=== PATIENT | female | born 1995 | race African-American/Black ===

== ENCOUNTER 2020-02-11 16:20 | Emergency (ER) | payer SELFPAY ==
[2020-02-11] MEDS ORDERED: NORMAL SALINE 1000 ML 1,000 ML IV ONE (16:32)
[2020-02-11] MEDS ORDERED: PROMETHAZINE HCL 25 MG SUPP.RECT PR ONE (16:33)
[2020-02-11 17:18] LABS: ABSOLUTE BASOPHILS # (AUTO) 0.1 10^3/uL (0.0-0.2); ABSOLUTE EOSINOPHILS # (AUTO) 0.1 10^3/uL (0.0-0.6); ABSOLUTE LYMPHOCYTES (AUTO) 2.7 10^3/uL (0.5-4.7); ABSOLUTE MONOCYTES (AUTO) 1.1 10^3/uL (0.1-1.4); ABSOLUTE NEUT (AUTO) 4.5 10^3/uL (1.7-8.2); BASOPHILS % (AUTO) 0.7 % (0-2); EOSINOPHILS % (AUTO) 0.9 % (0-6); HEMATOCRIT 41.7 % (36.0-47.0); HEMOGLOBIN 13.6 g/dL (12.0-15.5); LYMPHOCYTES % (AUTO) 32.3 % (13-45); MEAN CORPUSCULAR HEMOGLOBIN 23.4 pg (27.0-33.4); MEAN CORPUSCULAR HGB CONC 32.6 g/dL (32.0-36.0); MEAN CORPUSCULAR VOLUME 72 fl (80-97); MONOCYTES % (AUTO) 12.9 % (3-13); PLATELET COUNT 285 10^3/uL (150-450); RED BLOOD COUNT 5.79 10^6/uL (3.72-5.28); RED CELL DISTRIBUTION WIDTH 16.1 % (11.5-14.0); SEGMENTED NEUTROPHILS % (AUTO) 53.2 % (42-78); TOTAL CELLS COUNTED % (AUTO) 100 %; WHITE BLOOD COUNT 8.4 10^3/uL (4.0-10.5)
[2020-02-11 17:32] LABS: APPEARANCE,URINE CLOUDY; BILIRUBIN,URINE NEGATIVE (NEGATIVE); COLOR,URINE AMBER; GLUCOSE, URINE NEGATIVE (NEGATIVE); KETONES,URINE 80 mg/dL (NEGATIVE); LEUKOCYTE ESTERASE,URINE LARGE (NEGATIVE); NITRITE,URINE NEGATIVE (NEGATIVE); PROTEIN,URINE 100 mg/dL (NEGATIVE); URINE SPECIFIC GRAVITY 1.024
[2020-02-11 17:41] LABS: ALBUMIN 4.5 g/dL (3.5-5.0); ALKALINE PHOSPHATASE 128 U/L (38-126); ANION GAP 12 (5-19); ASPARTATE AMINO TRANSFERASE 46 U/L (14-36); BILIRUBIN,DIRECT 0.3 mg/dL (0.0-0.4); BILIRUBIN,TOTAL 0.6 mg/dL (0.2-1.3); BLOOD UREA NITROGEN 6 mg/dL (7-20); CALCIUM 9.9 mg/dL (8.4-10.2); CARBON DIOXIDE 26 mmol/L (22-30); CHLORIDE 99 mmol/L (98-107); GLUCOSE 84 mg/dL (75-110); POTASSIUM 4.1 mmol/L (3.6-5.0); TOTAL PROTEIN 8.4 g/dL (6.3-8.2)
--- NOTE | 2020-02-11 17:44 | RADIOLOGY REPORT (SQ) ---
EXAM DESCRIPTION: U/S [id number] TRNABD 1GES W/ODOP IMAGES COMPLETED DATE/TIME: 02/11/2020 5:27 pm REASON FOR STUDY: Pelvic pain nausea and vomiting g1 11w 6 d COMPARISON: None. TECHNIQUE: Transabdominal static and realtime grayscale images acquired of the pelvis. Additional se lected spectral and color Doppler images recorded. All images stored on PACs. bHCG: Not available. CLINICAL DATES: 11 weeks 6 day LIMITATIONS: None. FINDINGS: FETUS: Single Living intrauterine . ULTRASOUND EGA: 12 weeks 0 days ULTRASOUND KANNAN: 08/25/2020 EFW: Not applicable less than 20 weeks. CRL: 5.3 cm FHR: 165 beats per minute. SURVEY: No visualized anomalies. AMNIOTIC FLUID: Adequate amount. PLACENTA: Not yet developed due to early gestation. SUBCHORIONIC BLEED: Yes. SIZE OF BLEED: 1.7 x 1.7 x 0.9 cm. UTERUS: No masses. No anomalies. CERVICAL LENGTH: 2.8 cm. Closed. RIGHT ADNEXA: Normal ovary with normal vascular flow. No adnexal free fluid. No adnexal masses. LEFT ADNEXA: Normal ovary with normal vascular flow. No adnexal free fluid. No adnexal masses. FREE FLUID: None. OTHER: No other significant finding. IMPRESSION: LIVING INTRAUTERINE . EGA 12 weeks 0 days. Small subchronic hemorrhage. Trimester of : First trimester - 0 to 13 weeks. TECHNICAL DOCUMENTATION: JOB ID: [id number] 2010 [employer]- All Rights Reserved rev Reading location - IP/workstation name: [email or web address]
[2020-02-11] MEDS ORDERED: CEFTRIAXONE INJ 1000 MG VIAL IV ONE (19:37)
--- NOTE | 2020-02-11 19:41 | ER Document Report ---
ED General - General Chief Complaint: Nausea/Vomiting Stated Complaint: ABDOMINAL PAIN,VOMITING/11 WKS PREG Time Seen by Provider: 02/11/20 16:25 Notes: Patient is a 24-year-old -French female who is G1, P0 at 11 weeks 6 days gestation per last menstrual cycle who presents to the emergency department with a chief complaint of abdominal pain, nausea and vomiting. Patient states that she has had ongoing nausea and vomiting for about a month. Intermittent in nature. Worse with oral intake. States that she has had some vague inte rmittent transient abdominal discomfort since the onset of . She states most recently it is in the upper abdomen. States she has been unable to keep any food or drinks down given the ongoing nausea and vomiting through . She called her [employer] today and they recommended she come here for evaluation. Patient was previously on doxylamine and pyridoxine for nausea and vomiting. States it was working at first but then stopped. She also reports her urine is been darker in color recently. She denies any vaginal bleeding or discharge. No fevers. - Related Data Allergies/Adverse Reactions: amoxicillin Allergy (Intermediate, Verified 02/11/20 16:33) Hives Home Medications: denies Past Medical History - Social History Smoking Status: Never Smoker Chew tobacco use (# tins/day): No Frequency of alcohol use: None Drug Abuse: None Family History: Reviewed & Not Pertinent Patient has homicidal ideation: No Pulmonary Medical History: Reports: Hx Asthma GI Medical History: Reports: Hx Gastroesophageal Reflux Disease Review of Systems - Review of Systems Constitutional: denies: Fever EENT: denies: Throat pain Cardiovascular: denies: Chest pain Respiratory: denies: Short of breath Gastrointestinal: Abdominal pain Genitourinary: denies: Pain Female Genitourinary: . denies: Vaginal discharge Musculoskeletal: denies: Back pain Skin: denies: Lesions Hematologic/Lymphatic: denies: Easy bleeding Neurological/Psychological: denies: Headaches Physical Exam - Vital signs Vitals: Temp Pulse Resp BP Pulse Ox 97.7 F 98 16 137/78 H 98 02/11/20 16:27 02/11/20 16:27 02/11/20 16:27 02/11/20 16:27 02/11/20 16:27 - General General appearance: Appears well, Alert In distress: None - Respiratory Respiratory status: No respiratory distress Chest status: Nontender Breath sounds: Normal Chest palpation: Normal - Cardiovascular Rhythm: Regular Heart sounds: Normal auscultation - Abdominal Inspection: Normal Distension: No distension Bowel sounds: Normal Tenderness: Tender - Slight tenderness to palpation in the epigastrium Organomegaly: No organomegaly - Extremities General upper extremity: Normal inspection. No: Tender, Edema General lower extremity: Normal inspection. No: Tender, Edema - Neurological Neuro grossly intact: Yes Cognition: Normal Orientation: AAOx4 - Psychological Associated symptoms: Normal affect, Normal mood - Skin Skin Temperature: Warm Skin Moisture: Dry Skin Color: Normal Course - Re-evaluation Re-evalutation: 02/11/20 21:29 Patient's laboratory studies showing some increased liver enzymes likely secondary to the hyperemesis at hand. No other evidence of help syndrome. Her urinalysis is consistent with a UTI. She was hydrated with a liter normal saline here. Given Phenergan for nausea and vomiting and started on Rocephin IV for the UTI. She will be sent home on Macrobid for the UTI and given Phenergan suppositories. She has an appointment with her OB doctor on Sunday and will follow-up as scheduled and discussed. Ultrasound showing a live IUP at approximately 12 weeks 0 days with a small subchorionic hemorrhage. Copy of the report was given to the patient to take to her OB doctor. I advised they return here or any ER immediately with any new, persistent or worsening symptoms. She verbalized understood and agreed. Patient is had no episodes of vomiting here, is resting comfortably in the room. She is stable and appropriate for discharge and outpatient follow-up. 02/11/20 21:31 - Vital Signs Vital signs: Temp Pulse Resp BP Pulse Ox 97.7 F 98 16 137/78 H 98 02/11/20 16:27 02/11/20 16:27 02/11/20 16:27 02/11/20 16:27 02/11/20 16:27 - Laboratory Result Diagrams: 02/11/20 17:00 02/11/20 17:00 Laboratory results interpreted by me: 02/11/20 02/11/20 02/11/20 17:00 17:00 17:00 RBC 5.79 H MCV 72 L MCH 23.4 L RDW 16.1 H Sodium 136.9 L BUN 6 L Creatinine 0.50 L AST 46 H ALT 63 H Alkaline Phosphatase 128 H Total Protein 8.4 H Beta HCG, Quant 456525.00 H Urine Protein 100 H Urine Ketones 80 H Urine Urobilinogen 4.0 H Ur Leukocyte Esterase LARGE H Discharge - Discharge Clinical Impression: Nausea and vomiting during , Elevated liver enzymes, 12 weeks gest ation of UTI (urinary tract infection) Qualifiers: Urinary tract infection type: site unspecified Hematuria presence: without hematuria Qualified Code(s): N39.0 - Urinary tract infection, site not specified Condition: Stable Disposition: HOME, SELF-CARE Instructions: Antinausea Medication ([facility]), Nitrofurantoin ([facility]), ([facility]) Additional Instructions: Please follow-up with your OB doctor this week as scheduled. Please return here or any ER immediately with any new, persistent or worsening symptoms. Prescriptions: Nitrofurantoin Monohyd/M-Cryst [Macrobid 100 mg Capsule] 100 mg PO BID #20 cap Promethazine HCl [Phenergan 25 mg Supp.rect] 1 supp WV Q6H #12 supp.rect
[2020-02-11] MEDS ORDERED: CEFTRIAXONE 1 GM/D5W RTU 1 GM/50 ML RTUPB IV ONE (20:51)
[2020-02-11] MEDS ORDERED: PROMETHAZINE HCL INJ 25 MG/1 ML VIAL ONE (20:56)
[2020-02-11] MEDS ORDERED: PROMETHAZINE HCL INJ 25 MG/1 ML VIAL IV ONE (20:56)
[2020-02-11 22:03] VITALS: BP 128/68
== END 2020-02-11 22:01 | disposition home or self-care (01) ==
LOC: ER 16:20
DX: O21.9 Vomiting of pregnancy, unspecified (principal); O23.41 Unspecified infection of urinary tract in pregnancy, first trimester; O20.8 Other hemorrhage in early pregnancy; O26.891 Other specified pregnancy related conditions, first trimester; R74.8 Abnormal levels of other serum enzymes; R10.2 Pelvic and perineal pain; R10.816 Epigastric abdominal tenderness; O99.511 Diseases of the respiratory system complicating pregnancy, first trimester; J45.909 Unspecified asthma, uncomplicated; Z3A.12 12 weeks gestation of pregnancy; Z87.19 Personal history of other diseases of the digestive system; Z88.0 Allergy status to penicillin
CPT/HCPCS: 99285; 96361; 96375; 96365; 36415; 84702; 85025; 80053; 81001; 76801; J2550; J0696; J7030